=== PATIENT | female | born 1990 | race Caucasian/White ===

== ENCOUNTER 2017-05-08 13:20 | Emergency (ER) | payer SELFPAY ==
[2017-05-08] MEDS ORDERED: Ibuprofen 800 MG TAB ONE (14:14)
--- NOTE | 2017-05-08 15:24 | RAD ---
RIGHT ANKLE 3 VIEWS: Date: 05/08/17 HISTORY: Ankle injury. FINDINGS: There are no signs of any acute fracture or dislocation. Tiny calcaneal spurs are present. Some minim al degenerative changes of the ankle joint are noted. IMPRESSION: No evidence of fracture. POS: [facility]
== END 2017-05-08 14:20 | disposition home or self-care (01) ==
LOC: MADERS 13:20
DX: S93.401A Sprain of unspecified ligament of right ankle, initial encounter (principal); M76.61 Achilles tendinitis, right leg; F32.9 Major depressive disorder, single episode, unspecified; Z87.891 Personal history of nicotine dependence; X50.9XXA Other and unspecified overexertion or strenuous movements or postures, initial encounter

== ENCOUNTER 2017-10-11 02:51 | Emergency (ER) | payer SELFPAY ==
[2017-10-11] MEDS ORDERED: Ketorolac Tromethamine 30 MG/ML VIAL ONE (03:32)
[2017-10-11] MEDS ORDERED: Metoclopramide HCl 10 MG/2 ML VIAL ONE (03:32)
[2017-10-11] MEDS ORDERED: Ondansetron HCl/PF 4 MG/2 ML Vial ONE (03:32)
[2017-10-11 03:38] LABS: Bilirubin Negative (Negative); Blood, Urine Negative (Negative); Clarity Slightly Cloudy (Clear); Glucose, Urine (Dipstick) Negative (Negative); Leukocyte Small (Negative); Nitrite Negative (Negative); Protein, Urine (Dipstick) Negative (Neg-Trace); pH, Urine 6.5 (5.0-9.0)
[2017-10-11 03:59] LABS: #Basophils 0.1 thou/uL (0.0-0.2); #Eosinphils 0.3 thou/uL (0.0-0.7); #Lymphocytes 4.4 thou/uL (1.20-3.40); #Monocytes 0.9 thou/uL (0.11-0.59); #Neutrophils 4.7 thou/uL (1.40-6.50); %Basophils 1.2 % (0.0-1.0); %Eosinophils 2.4 % (0.0-10.0); %Lymphocytes 42.3 % (21.0-51.0); %Monocytes 8.3 % (0.0-10.0); %Neutrophils 45.7 % (42.0-75.0); Hemoglobin 14.9 g/dL (12.0-16.0); Mean Corpuscular HGB CONC 34.9 g/dL (32.0-36.0); Mean Corpuscular Hemoglobin 29.5 pg (27.0-31.0); Mean Corpuscular Volume 84.4 fl (81.0-99.0); Mean Platelet Volume 9.5 fL (7.4-10.4); Platelet Count 211 thou/uL (130-400); RBC Distribution Width 11.6 % (11.5-14.5); Red Blood Cell (RBC) Count 5.05 mill/uL (4.20-5.40); White Blood Cell (WBC) Count 10.3 thou/uL (4.8-10.8)
[2017-10-11 04:03] LABS: ALT (SGPT) 42 U/L (8-55); AST (SGOT) 31 U/L (5-34); Albumin 4.4 g/dL (3.5-5.0); Alkaline Phosphatase 58 U/L (40-150); Anion Gap 15 mmol/L (10-20); BUN (Urea Nitrogen) 10 mg/dL (7.0-18.7); Bilirubin, Total 1.3 mg/dL (0.2-1.2); Calc. Creatinine Clearance 0 mL/min (70-130); Carbon Dioxide 24 mmol/L (22-29); Chloride 105 mmol/L (98-107); Estimated GFR-MDRD 85; Globulin 3.4 g/dL (2.4-3.5); Glucose 106 mg/dL (70-105); Lipase 83 U/L (8-78); Potassium 3.8 mmol/L (3.5-5.1); Protein, Total 7.8 g/dL (6.0-8.3); Sodium 140 mmol/L (136-145)
[2017-10-11 04:05] LABS: BHCG - Serum Negative (NEGATIVE); Pregs Control Background? CLEAR/WHITE (CLR/WHITE); Pregs Control Bar Appear? YES (CONTROL BAR)
[2017-10-11 04:05] LABS: Bacteria/HPF 3+ HPF (None Seen); RBC/HPF 0-3 HPF (0-3); Renal Epithelial 0-3 HPF (0-3); Transitional Epithelial 0-3 HPF (0-3); WBC/HPF 21-50 HPF (0-3); Yeast-All Forms 1+ HPF (None Seen)
[2017-10-11] MEDS ORDERED: CEFAZOLIN 1 GM VIAL ONE (06:04)
[2017-10-11] MEDS ORDERED: Sodium Chloride 0.9% 1,000 ML BAG ONE (08:18)
--- NOTE | 2017-10-11 08:23 | ULT ---
PRELIMINARY REPORT/[facility]/EMERGENTY AFTER-HOURS PROCEDURE US Abdomen Limited, Right Upper Quadrant CLINICAL HISTORY: 27 years old, female; Pain; Abdominal pain; Acute; Patient HX: negative this date TECHNIQUE: Real-time ultrasound of the right upper quadrant with image documentation. COMPARISON: No relevant prior studies available. FINDINGS: Suspect 2-3 shadowing gallstones within the gallbladder. The largest measures about 14 mm. There also appears to be a mild amount of biliary sludge in the gallbladder. Borderline/mild gallbladder wall t hickening, measuring up to 3.2 mm. No definite pericholecystic fluid. The gallbladder appears mildly distended, transverse diameter up to 4.5 cm. Technologist states patient tender over the gallbladder region during scanning. No biliary dilation, common duct measures 2.5 mm. Unremarkable liver, no focal abnormality. Visible pancreas unremarkable. Images of the right kidney show no hydronephrosis. IMPRESSION: Cholelithiasis, see additional details above. No biliary tree dilation. Thank you for allowing us to participate in the care of your patient. Dictated and Authenticated by: Avery Conde MD 10/11/2017 5:37 AM Central Time ([place] & [place]) FINAL REPORT RIGHT UPPER QUADRANT ULTRASOUND: Date: 10/11/17 HISTORY: Pain. COMPARISON: None. FINDINGS/IMPRESSION: Findings and impression are concordant with the preliminary report by Josel[facility]. There is increased hepati c echotexture suggesting steatosis. Cholelithiasis. Positive Mckeon's sign. In the correct clinical s etting, a combination of positive Mckeon's sign, thickened wall, and dilated gallbladder can be seen acute cholecystitis. POS: [facility]
== END 2017-10-11 06:16 | disposition short-term general hospital (02) ==
LOC: MADERS 02:51
DX: K81.0 Acute cholecystitis (principal); N39.0 Urinary tract infection, site not specified; Z87.891 Personal history of nicotine dependence
CPT/HCPCS: 36415; 76705; 80053; 81001; 82150; 83690; 84703; 85025; 87086; 96361; 96374; 96375; J0690; J1885; J2405; J2765; J7050

== ENCOUNTER 2018-03-28 13:32 | Emergency (ER) | payer SELFPAY | END 2018-03-28 14:02 | disposition home or self-care (01) | LOC: MADERS 13:32 | DX: J01.90 Acute sinusitis, unspecified (principal); F32.9 Major depressive disorder, single episode, unspecified; Z87.891 Personal history of nicotine dependence | CPT/HCPCS: 99283 ==

== ENCOUNTER 2018-05-24 17:13 | Emergency (ER) | payer SELFPAY | END 2018-05-24 17:40 | disposition home or self-care (01) | LOC: MADERS 17:13 | DX: M25.571 Pain in right ankle and joints of right foot (principal); F32.9 Major depressive disorder, single episode, unspecified; Z87.891 Personal history of nicotine dependence | CPT/HCPCS: 99281 ==

== ENCOUNTER 2019-09-12 17:40 | Outpatient (CLI) | payer OTHER ==
[2019-09-12 18:39] LABS: BHCG - Serum Negative (NEGATIVE); Pregs Control Background? CLEAR/WHITE (CLR/WHITE); Pregs Control Bar Appear? YES (CONTROL BAR)
== END 2019-09-12 17:41 | disposition home or self-care (01) ==
LOC: MADLAB 17:40
DX: Z00.00 Encounter for general adult medical examination without abnormal findings (principal)
CPT/HCPCS: 36415; 84703

== ENCOUNTER 2020-09-09 13:39 | Outpatient (CLI) | payer OTHER | END 2020-09-09 13:40 | disposition home or self-care (01) | LOC: MADLAB 13:39 | PROVIDERS: ATTEND Family Medicine | DX: Z01.419 Encounter for gynecological examination (general) (routine) without abnormal findings (principal) | CPT/HCPCS: 88142; G0123 ==

== ENCOUNTER 2022-06-14 11:08 | Emergency (ER) | payer SELFPAY ==
[2022-06-14] MEDS ORDERED: predniSONE 20 MG TAB ONE (11:46)
[2022-06-14] MEDS ORDERED: Famotidine 20 MG TAB ONE (11:46)
== END 2022-06-14 12:24 | disposition home or self-care (01) ==
LOC: MADERS 11:08
DX: L50.9 Urticaria, unspecified (principal); T78.40XA Allergy, unspecified, initial encounter
CPT/HCPCS: 99282; J7512

== ENCOUNTER 2023-03-28 15:06 | Emergency (ER) | payer SELFPAY ==
[2023-03-28] MEDS ORDERED: Amoxicillin/Potassium Clav 875 MG TAB ONE (15:20)
[2023-03-28] MEDS ORDERED: Ibuprofen 800 MG TAB ONE (15:20)
== END 2023-03-28 15:26 | disposition home or self-care (01) ==
LOC: MADERS 15:06
DX: K04.7 Periapical abscess without sinus (principal); K02.9 Dental caries, unspecified; L03.213 Periorbital cellulitis
CPT/HCPCS: 99283

== ENCOUNTER 2023-12-14 12:22 | Emergency (ER) | payer OTHER, SELFPAY | END 2023-12-14 13:37 | disposition home or self-care (01) | LOC: MADERS 12:22 | DX: H73.013 Bullous myringitis, bilateral (principal) | CPT/HCPCS: 99282 ==